=== PATIENT | female | born 1980 | race Caucasian/White ===

== ENCOUNTER 2016-07-03 22:10 | Emergency (ER) | payer OTHER ==
--- NOTE | ~2016-07-03 | CR127 ---
[facility] A Service of [facility] RADIOLOGY TEXT RESULTS PATIENT: HIPOLITO KRISHNA LOCATION: SED : 84 UNIT #: [id number] AGE: [address]: Penny Suarez APRN SEX: F ORDER DR: [id number] [place] [id number] E MR#: [id number] Acc #: [id number] NAME: HIPOLITO KRISHNA : 1980 SEX: F STUDY DATE/TIME: 07/03/2016 21:58 UNIT: SED ROOM: STUDY DESCRIPTION: CR Foot Complete Min 3 View Rt Attending Physician: Penny Suarez A.P.R.N. Ordering Physician: Penny Suarez A.P.R.N. Primary Care Physician: Carmen Dietz A.P.R.N. MEDICAL IMAGING REPORT This report is preliminary unless electronic signature is present. EXAM Right foot series, 07/03/2016 HISTORY Trauma. The patient tripped over son. Anterior lateral swollen and bruised with pain today. FINDINGS AP lateral and oblique radiographs of the right foot are presented. No comparisons. No traumatic fracture or malalignment. 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 Normal variant. No soft tissue defect, subcutaneous air or radiodense foreign body. Small plantar calcaneal spur. Dictated by... Madi Little M.D. THIS IS AN ELECTRONICALLY VERIFIED REPORT Madi Little M.D. at 07/06/2016 6:09 PM Kyung TD: 07/04/2016 16:07 JOB #: [id number] MEDICAL IMAGING REPORT Page 1 of 1
[~2016-07-03 22:10] MED LIST: FARXIGA10 MG PO; FIORICET W/CODE1 CAP PO; HUMALOG100 U/M2; IBUPROFEN; JENTADUETO 2.51 EAC2 PO; LEVEMIR FL100 UNIT/1
[2016-07-03] MEDS ORDERED: NAPROSYN-EC500 M1 DOB (23:08)
== END 2016-07-03 23:13 | disposition home or self-care (01) ==
LOC: SED 22:10
DX: S93.621A Sprain of tarsometatarsal ligament of right foot, initial encounter (principal); E10.9 Type 1 diabetes mellitus without complications; Z79.4 Long term (current) use of insulin; Z79.899 Other long term (current) drug therapy; W01.0XXA Fall on same level from slipping, tripping and stumbling without subsequent striking against object, initial encounter; Y92.009 Unspecified place in unspecified non-institutional (private) residence as the place of occurrence of the external cause
CPT/HCPCS: 29405; 73630; 99283